=== PATIENT | female | born 1960 | race Caucasian/White ===

== ENCOUNTER 2021-02-10 10:55 | Outpatient (AMBR) | payer MEDICAID, SELFPAY ==
--- NOTE | 2021-02-10 14:33 | PT.ODAYNRPT ---
PT Outpatient Daily Note Date of Service: 02/10/21 OP Daily Note Visit Reasons: Cerebrovascular accident Outpatient Physical Therapy Treatment Date: 02/10/21 Subjective: The LE's still feel weak especially with sit to stand transfers and partial body weight squatting on [employer] Objective: See F/S for therex Assessment: Pt had difficulty on [employer] with pushing up on level 7 which is 35% of body weight. Plan: Reassess Length of Time (minutes) of Treatment: 30 Minutes Office Procedures PT Treatments PT Date of Service: 02/10/21 Therapeutic Exercise 30 minutes: Yes CVA/TIA Most Recent Cardiac Tests: No Data to Display
--- NOTE | 2021-07-01 15:22 | PT.ODS1RPT ---
PT OP Progress/Discharge Note Date of Service: 07/01/21 Progress Note/DC Note Progress Note/Discharge Note: DC Note Patient Information Visit Reasons: Cerebrovascular accident Service Continue Service or Discharge: Discharge Discharge Date: 07/01/21 Status Assessment: Pt attended the initial evaluation and 3 Rx visits and never returned or called to schedule a follow-up appointment within the past 30 days. Pt?s attendance is not consistent enough to make progress with goals. Pt will be D/C'd according to non-compliance with attendance policy. Plan: D/C Office Procedures PT Treatments PT Date of Service: 02/10/21 Therapeutic Exercise 30 minutes: Yes CVA/TIA Most Recent Cardiac Tests: No Data to Display
== END 2021-03-12 23:59 | disposition home or self-care (01) ==
PROVIDERS: PCP Internal Medicine; Referring Provider Internal Medicine; Visit Provider Internal Medicine
DX: R53.1 Weakness (principal); R26.2 Difficulty in walking, not elsewhere classified; F17.200 Nicotine dependence, unspecified, uncomplicated; E11.9 Type 2 diabetes mellitus without complications; I10 Essential (primary) hypertension
CPT/HCPCS: 97110